=== PATIENT | female | born 1950 | race Caucasian/White ===

== ENCOUNTER 2020-02-23 12:41 | Observation (INO) | payer MEDICARE, OTHER, SELFPAY ==
[2020-02-23] VITALS (8 sets, daily range): BP systolic 133–147; BP diastolic 48–101; PULSE 62–79; RESP 12–19; TEMP 36.5–36.8; O2SAT 96–100; BMI 29.4; BMI 28.1; BMI 28.2
--- NOTE | 2020-02-23 13:04 | ED.RN ---
PT ARRIVES ALERT AND ORIENTED WITH FINGERSTICK BS 26. PT GIVEN ORANGE JUICE AND CHEESE STICK IMMEDIATELY. FSBS RETESTED WITH RESULT OF 36. AFTER PHYSICIAN EXAMINATION, PT GIVEN SECOND ORANGE JUICE AND HAM AND CHEESE SANDWICH. WILL CONTINUE TO MONITOR.
[2020-02-23 13:27] LABS: Absolute Lymphocyte Count 1.22 X10^3/uL (0.83-4.51); Absolute Neutrophil Count 10.4 X10^3/uL (2.0-7.7); Basophil# 0.02 X10^3/uL; Basophil% 0.2 % (0-1); Eosinophil# 0.18 X10^3/uL; Eosinophils% 1.4 % (0-5); Hematocrit 38.2 % (37-47); Hemoglobin 12.3 g/dL (12.0-15.0); Lymphocyte # 1.22 X10^3/ul (4.0); Lymphocyte % 9.7 % (19-41); Mean Corp Hgb Conc 32.2 g/dL (32-36); Mean Corpuscular Hgb 28.3 pg (27.0-32.0); Mean Platelet Vol. 8.8 fl (6.2-12.0); Monocyte# 0.77 X10^3/uL; Monocyte% 6.1 % (0-10); NRBC Flagged by Analyzer 0 % (0-5); Neutrophil # 10.36 X10^3/uL (2.7-7.7); Platelet Count 262 K/mm3 (150-450); RBC Distribution Width CV 18.5 % (11.6-14.6); Red Blood Count 4.34 M/mm3 (4.2-5.4); White Blood Count 12.6 K/mm3 (4.4-11.0)
[2020-02-23 13:37] LABS: Anion Gap 6 (5-15); BUN 25 mg/dL (7-18); Calcium,Total 9.4 mg/dL (8.5-10.1); Chloride 107 mmol/L (98-107); EST Glomerular Filtration Rate 89 mL/min (>60); Est Glom Filt Rate - Afr Amer 107 mL/min (>60); Glucose 129 mg/dL (74-106); Potassium 3.8 mmol/L (3.5-5.1); Sodium Level 139 mmol/L (136-145)
[2020-02-23 14:46] LABS: Bedside Glucose 180 mg/dL (70-110)
[2020-02-23 14:46] LABS: Bedside Glucose 36 mg/dL (70-110)
--- NOTE | 2020-02-23 15:12 | ED.VISSUMM ---
- ER Visit Summary Date of Service: 02/23/20 Chief Complaint: Hypoglycemia History of Present Illness: The patient is a [address] Sidhu. She is on Actos 15 mg once a day, glyburide 5 mg every morning and 5 mg every afternoon, and metformin 1000 mg twice daily. Patient reports that she ate Cheerios for breakfast. She had not eaten lunch yet. She states that she was sitting at the table with her and son and could hear them talking to her, but she was unable to respond. Upon EMS arrival her blood sugar was 23. She was given a dose of glucagon on the way in and is now back to normal. She denies any recent change in her medications. Review of systems: General: No fever, chills, cold sweats. Cardiovascular: No chest pain, palpitations. Respiratory: No cough, shortness of breath, dyspnea on exertion. Gastrointestinal: No abdominal pain, nausea, vomiting, diarrhea, melena, or hematochezia. Genitourinary: No dysuria, frequency, hematuria. Skin: No rash. Neuro: No headache, numbness, weakness. Physical Examination: Vitals: Stable. Afebrile. General: Well-nourished and well-developed. Head: Normocephalic atraumatic. Neck: Supple, no lymphadenopathy. No JVD. Nontender. Cardiovascular: Regular rate and rhythm. No murmurs. Respiratory: No respiratory distress. Clear to auscultation bilaterally. Abdominal: Soft, nontender, nondistended, normal bowel sounds. No guarding, rebound, or peritoneal signs. Back: Nontender. Extremities: Nontender, no edema. Skin: Normal color, no rash. Neurologic: Alert and oriented ?3. Cranial nerves II through XII are intact. Normal strength and sensation. Psych: Normal affect. Test Results: CBC shows a white count of 12.6 with 87 neutrophils and 10 lymphocytes. Chem-7 shows a glucose 139 BUN 25. Emergency Department Course and Treatment: Patient was awake and alert on arrival to the emergency department. She was not given dextrose IV as she was able to eat. She is resting comfortably. Treatment Plan: Patient was discussed with Dr. Reeves. She will be admitted the hospital for further evaluation and treatment. Disposition: Admitted in improved condition. Impression: 1. Hypoglycemia on sulfonylurea agent. This note was generated with Dragon dictation software. It may contain incorrect words, spelling, and punctuation that were not noted in review of the chart prior to signing ED Disposition - Plan for ED Patient: Referrals: Roberto Tapia MD [Primary Care Provider] -
--- NOTE | 2020-02-23 15:18 | HP.PCM_ITS ---
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 Patient remembers waking up in the morning and having a bowl of cereal. She was sitting at the dining table with her , son and grandchildren. She was trying to figure out with them what to have for lunch. She remembers her saying that her eyes look glossy. The next thing that she remembers was waking up in the ambulance. Her blood glucose taken by the EMS squad was 33. She received IM glucagon and her right shoulder. Repeat blood sugar taken in route was 45. She denies feeling well recently. Denied any fever chills or shortness of breath. There has been no previous history of hypoglycemia. Vitals in the ED showed patient 98F, heart rate 72, blood pressure 138/101, respiration rate was 12, SPO2 is 98% on room air. WBC 12.6, hemoglobin 12.3, platelet count 262, BMP was unremarkable Past Medical History Past Medical History (Chronic Problems): Chronic Problems Diabetes mellitus (Chronic) Hypertension (Chronic) Allergies No Known Allergies Allergy (Verified 02/23/20 13:12) Home Medications: Ambulatory Orders Medication Instructions Recorded Glyburide 5 mg PO QHS 02/23/20 Glyburide 10 mg PO DAILY 02/23/20 Lisinopril [Zestril] 10 mg PO DAILY 02/23/20 Metformin HCl 1,000 mg PO BID 02/23/20 Pioglitazone [Actos] 15 mg PO DAILY 02/23/20 Simvastatin [Zocor] 40 mg PO DAILY 02/23/20 Surgical History: hysterectomy Psychiatric History: No pertinent psych hx 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 Dyspnea Respiratory: Denies: Cough, Shortness of breath at rest, Shortness of breath upon exertion, Sputum production Gastrointestinal: Denies: Abdominal Pain, Constipation, Nausea, Vomiting Genitourinary: Denies: Dysuria Musculoskeletal: Denies: Joint Pain, Joint stiffness, Joint swelling, Joint Tenderness Skin: Denies: Rash, Wounds Neurological: Denies: Numbness, Tingling, Focal weakness Psychiatric: Denies: Anxiety, Depression, Homicidal Ideations, Suicidal Ideations Hematologic/ Lymphatic: Denies: Easy Bruising, Easy Bleeding VTE Information - Inpt Only VTE Present on Admission: No VTE Pharm Prophylaxis ordered?: Yes Patient Problems: Active and Suspected Problems Hypoglycemia (Acute) - Physical Exam Vitals/I&O's: Vital Signs Temp Pulse Resp BP Pulse Ox 98 F 75 15 138/67 H 99 02/23/20 12:43 02/23/20 14:46 02/23/20 14:46 02/23/20 14:46 02/23/20 14:46 Oxygen Delivery Method Room Air Weight: 82.6 kg Body Mass Index (BMI) 29.4 Finger Stick Blood Glucose 180 General: Alert, Oriented x3, Cooperative, No apparent distress HEENT: Atraumatic, PERRLA, EOMI, Normocephalic Oral: Moist Mucosa Neck: Supple Lungs: Clear to auscultation, Normal air movement Cardiovascular: Regular rate, Regular Rhythm, Normal S1, Normal S2, No murmurs Abdomen: Bowel Sounds Present, Soft, Non Tender, Non-Distended, No Hepato- splenomegaly Extremities: No edema Skin: No rashes, No breakdown Musculoskeletal: No Tenderness to Palpation of Joints or Extremities Lymphatic: No Cervical, Supraclavicular, or Inguinal Adenopathy Neurological: Cranial nerves II-XII grossly intact, Neuro grossly intact Psych/Mental Status: Normal Affect, Appropriate Laboratory Results 02/23/20 13:01: POC Glucose 36 L* 02/23/20 13:15: WBC 12.6 H, RBC 4.34, Hgb 12.3, Hct 38.2, MCV 88.0, MCH 28.3, MCHC 32.2, RDW Std Deviation 55.0 H, RDW Coeff of Brian 18.5 H, Plt Count 262, MPV 8.8, Immature Gran % (Auto) 0.600, Neut % (Auto) 82.0 H, Lymph % (Auto) 9.7 L, [place] % (Auto) 6.1, Eos % (Auto) 1.4, Baso % (Auto) 0.2, Absolute Neuts (auto) 10.4 H, Absolute Lymphs (auto) 1.22, Nucleated RBC % 0 02/23/20 13:15: Sodium 139, Potassium 3.8, Chloride 107, Carbon Dioxide 26.0, Anion Gap 6, BUN 25 H, Creatinine 0.70, Estim Creat Clear Calc 49.00, Est GFR (MDRD) Af Amer 107, Est GFR (MDRD) Non-Af 89, BUN/Creatinine Ratio 36.0 H, Glucose 129 H, Calcium 9.4 02/23/20 14:36: POC Glucose 180 H Assessment/Plan All Active Problems Hypoglycemia (Acute) 69 year old F with PMHx of Type 2 DM, hypertension who comes in with hypoglycemia. 1. Hypoglycemia, in a patient with known history of type II DM on oral hypoglycemics Oral hypoglycemics held; blood glucose is currently 180 We will continue to monitor blood glucose and add low-dose insulin sliding scale if needed 2. Leucocytosis, reactive, no signs of infection 3. Hypertension, controlled, continue on Lisinopril 4. DVT PPx- Lovenox SC OBSV E&M: [id number] Initial observation care L3
[2020-02-23 18:15] LABS: Bedside Glucose 93 mg/dL (70-110)
[2020-02-23 18:15] LABS: Bedside Glucose 57 mg/dL (70-110)
[2020-02-23 18:15] LABS: Bedside Glucose 26 mg/dL (70-110)
[2020-02-23 18:27] LABS: AST(SGOT) 21 U/L (15-37); Alanine Aminotransfer ALT/SGPT 29 U/L (13-56); Albumin, Serum 3.5 g/dL (3.2-5.0); Alkaline Phosphatase 62 U/L (45-117); Bilirubin, Direct 0.11 mg/dL (0.00-0.30); Globulin 4.2 g/dL (2.2-4.2); Protein, Total 7.7 g/dL (6.4-8.2)
[2020-02-23 18:39] LABS: Hemoglobin A1c 7.1 % (4.2-6.3)
[2020-02-23 21:55] LABS: Bedside Glucose 108 mg/dL (70-110)
[2020-02-24 03:00] VITALS: PULSE 62
[2020-02-24 03:20] VITALS: BP 122/65; PULSE 62; RESP 16; TEMP 36.7; O2SAT 95
[2020-02-24 03:31] LABS: Bedside Glucose 61 mg/dL (70-110)
[2020-02-24] MEDS: Acetaminophen 325 MG Tablet 650 MG PO (03:31)
[2020-02-24 04:06] LABS: Bedside Glucose 113 mg/dL (70-110)
[2020-02-24 06:38] LABS: Absolute Lymphocyte Count 1.65 X10^3/uL (0.83-4.51); Absolute Neutrophil Count 4.7 X10^3/uL (2.0-7.7); Basophil# 0.03 X10^3/uL; Basophil% 0.4 % (0-1); Eosinophil# 0.23 X10^3/uL; Eosinophils% 3.2 % (0-5); Hemoglobin 10.6 g/dL (12.0-15.0); Lymphocyte # 1.65 X10^3/ul (4.0); Mean Corp Hgb Conc 31.2 g/dL (32-36); Mean Corpuscular Hgb 26.7 pg (27.0-32.0); Mean Corpuscular Volume 85.6 fL (81-99); Mean Platelet Vol. 8.9 fl (6.2-12.0); Monocyte# 0.52 X10^3/uL; Monocyte% 7.3 % (0-10); NRBC Flagged by Analyzer 0 % (0-5); Neutrophil # 4.72 X10^3/uL (2.7-7.7); Neutrophil % 65.8 % (47-70); Platelet Count 256 K/mm3 (150-450); RBC Distribution Width CV 17.4 % (11.6-14.6); RBC Distribution Width SD 54.7 fl (35.1-43.9); Red Blood Count 3.97 M/mm3 (4.2-5.4); White Blood Count 7.2 K/mm3 (4.4-11.0)
[2020-02-24 06:51] LABS: Bedside Glucose 132 mg/dL (70-110)
[2020-02-24 07:00] VITALS: PULSE 56
[2020-02-24 07:06] LABS: ALB/GLOB Ratio 0.8 RATIO (0.9-2.4); AST(SGOT) 21 U/L (15-37); Alanine Aminotransfer ALT/SGPT 25 U/L (13-56); Albumin, Serum 2.9 g/dL (3.2-5.0); Alkaline Phosphatase 49 U/L (45-117); Anion Gap 7 (5-15); BUN 23 mg/dL (7-18); BUN/Creat Ratio 30.3 RATIO (10-20); Calcium,Total 8.4 mg/dL (8.5-10.1); Chloride 107 mmol/L (98-107); Creatinine, Serum 0.76 mg/dL (0.55-1.02); EST Glomerular Filtration Rate 80 mL/min (>60); Est Glom Filt Rate - Afr Amer 97 mL/min (>60); Globulin 3.5 g/dL (2.2-4.2); Glucose 162 mg/dL (74-106); Potassium 4.3 mmol/L (3.5-5.1); Protein, Total 6.4 g/dL (6.4-8.2); Sodium Level 139 mmol/L (136-145)
--- NOTE | 2020-02-24 08:56 | DCINST_ITS ---
- Discharge Diagnoses Current Active Problems: Current Active and Chronic Problems Hypoglycemia (Acute) Diabetes mellitus (Chronic) Hypertension (Chronic) Reason(s) for Visit for Discharge Instructions: Hypoglycemia You will use the following diet at home:: Calorie/Carbohydrate Controlled (spe cify 1200, 1400, etc) - 1800 calories, Cardiac Your food should be the consistency of: Regular Your liquids should be the consistency of: Regular/Thin Discharge Activity: Return to Normal Activity Additional Instructions: Take note of changes in your medications. Check your blood glucose 3x a day for 1 week. Follow-up with your primary care doctor for slow re-introduction of your other diabetic medications. Be aware of low blood sugar and its symptoms. If you notice that your blood sugar is going more than 200 prior to seeing your doctor, call and ask for resumption of some of your other medications that have been held. Allergies/Adverse Reactions: Allergies No Known Allergies Allergy (Verified 02/23/20 13:12) Medications to take at Discharge Lisinopril [Zestril] 10 mg PO DAILY 02/23/20 Metformin HCl 1,000 mg PO BID 02/23/20 Simvastatin [Zocor] 40 mg PO DAILY 02/23/20 Primary Care Physician: Roberto Tapia MD [Primary Care Provider] - Please follow up with your Primary Care Physician in: in 1-2 weeks Test Results: Test results from this visit will be discussed in further detail at your follow- up appointment, if applicable. Proposed Discharge Date: 02/24/20
--- NOTE | 2020-02-24 09:11 | DS.PCM_ITS ---
Discharge Date and Diagnosis Date of Admission: 02/23/20 Date of Discharge: 02/24/20 - Primary Discharge Diagnosis Active and Suspected Problems Hypoglycemia (Acute) - Secondary Discharge Diagnosis Chronic Problems Diabetes mellitus (Chronic) Hypertension (Chronic) Hospital Course and Treatment None Operations: None Procedures: None Summary of Care Provided: 69 year old F with PMHx of Type 2 DM, hypertension who comes in with hypoglycemia. Patient remembers waking up in the morning and having a bowl of cereal. She was sitting at the dining table with her , son and grandchildren talking to them they noticed that her eyes were glossy she became confused. The EMS was called. Glucose was 33. She received IM glucago n. Repeat blood sugar was 45. Patient came around in the ambulance. She is on metformin, Actos and hyper right. These medications were held. Patient was alert oriented time of admission. She was able to take her meals. More hypoglycemias were noticed overnight. She was resumed on metformin at discharge and asked to keep her profile of her blood sugars. Follow-up with her primary care doctor in 1 week with a log of her blood sugars. She knows to call her primary care doctor when her sugars are more than 180?200. Subjective: On the day of discharge, patient was seen and examined. Denied any new complaints. Objective: Physical exam: General: Alert, Oriented x3, Cooperative, No apparent distress HEENT: Atraumatic, PERRLA, EOMI, Normocephalic Oral: Moist Mucosa Neck: Supple Lungs: Clear to auscultation, Normal air movement Cardiovascular: Regular rate, Regular Rhythm, Normal S1, Normal S2, No murmurs Abdomen: Bowel Sounds Present, Soft, Non Tender, Non-Distended, No Hepato- splenomegaly Extremities: No edema Skin: No rashes, No breakdown Musculoskeletal: No Tenderness to Palpation of Joints or Extremities Lymphatic: No Cervical, Supraclavicular, or Inguinal Adenopathy Neurological: Cranial nerves II-XII grossly intact, Neuro grossly intact Psych/Mental Status: Normal Affect, Appropriate - Physical Exam Vitals/I&O's: Vital Signs Temp Pulse Resp BP Pulse Ox 98.0 F 62 16 122/65 H 95 02/24/20 03:20 02/24/20 03:20 02/24/20 03:20 02/24/20 03:20 02/24/20 03:20 Oxygen Delivery Method Room Air Weight: 80.1 kg Body Mass Index (BMI) 28.1 Finger Stick Blood Glucose 180 Intake and Output for Last 24 Hours 02/22/20 02/23/20 02/24/20 23:59 23:59 23:59 Intake Total 340 / 340 200 / 200 Balance 340 / 340 200 / 200 Laboratory Results 02/23/20 12:40: POC Glucose 26 L* 02/23/20 13:01: POC Glucose 36 L* 02/23/20 13:15: WBC 12.6 H, RBC 4.34, Hgb 12.3, Hct 38.2, MCV 88.0, MCH 28.3, MCHC 32.2, RDW Std Deviation 55.0 H, RDW Coeff of Brian 18.5 H, Plt Count 262, MPV 8.8, Immature Gran % (Auto) 0.600, Neut % (Auto) 82.0 H, Lymph % (Auto) 9.7 L, [place] % (Auto) 6.1, Eos % (Auto) 1.4, Baso % (Auto) 0.2, Absolute Neuts (auto) 10.4 H, Absolute Lymphs (auto) 1.22, Nucleated RBC % 0 02/23/20 13:15: Sodium 139, Potassium 3.8, Chloride 107, Carbon Dioxide 26.0, Anion Gap 6, BUN 25 H, Creatinine 0.70, Estim Creat Clear Calc 49.00, Est GFR (MDRD) Af Amer 107, Est GFR (MDRD) Non-Af 89, BUN/Creatinine Ratio 36.0 H, Glucose 129 H, Calcium 9.4 02/23/20 13:15: Hemoglobin A1c 7.1 H 02/23/20 13:15: Total Bilirubin 0.30, Direct Bilirubin 0.11, AST 21, ALT 29, Alkaline Phosphatase 62, Total Protein 7.7, Albumin 3.5, Globulin 4.2 02/23/20 14:36: POC Glucose 180 H 02/23/20 17:39: POC Glucose 57 L 02/23/20 18:03: POC Glucose 93 02/23/20 21:24: POC Glucose 108 02/24/20 03:24: POC Glucose 61 L 02/24/20 04:00: POC Glucose 113 H 02/24/20 06:05: WBC 7.2, RBC 3.97 L, Hgb 10.6 L, Hct 34.0 L, MCV 85.6, MCH 26.7 L, MCHC 31.2 L, RDW Std Deviation 54.7 H, RDW Coeff of Brian 17.4 H, Plt Count 256, MPV 8.9, Immature Gran % (Auto) 0.300, Neut % (Auto) 65.8, Lymph % (Auto) 23.0, [place] % (Auto) 7.3, Eos % (Auto) 3.2, Baso % (Auto) 0.4, Absolute Neuts (auto) 4.7, Absolute Lymphs (auto) 1.65, Nucleated RBC % 0 02/24/20 06:05: Sodium 139, Potassium 4.3, Chloride 107, Carbon Dioxide 25.0, Anion Gap 7, BUN 23 H, Creatinine 0.76, Estim Creat Clear Calc 49.00, Est GFR (MDRD) Af Amer 97, Est GFR (MDRD) Non-Af 80, BUN/Creatinine Ratio 30.3 H, Glucose 162 H, Calcium 8.4 L, Total Bilirubin 0.40, AST 21, ALT 25, Alkaline Phosphatase 49, Total Protein 6.4, Albumin 2.9 L, Globulin 3.5, Albumin/Globulin Ratio 0.8 L 02/24/20 06:38: POC Glucose 132 H Current Medications Acetaminophen (Tylenol) 650 mg PO Q6H PRN PRN PRN Reason: Pain Score 1-10/Temp > 100.7 F Last Admin: 02/24/20 03:31 Dose: 650 mg Documented by: Atorvastatin Calcium (Lipitor) 20 mg PO DAILY [facility] Dextrose (D50w Syringe) 0 gm IV X1 PRN; Protocol PRN Reason: Hypoglycemia Enoxaparin Sodium (Lovenox) 40 mg SC DAILY [facility] Glucagon () 1 mg IM .X1 PRN PRN Reason: Hypoglycemia Sodium Chloride () 250 mls @ 15 mls/hr IV .[id number] PRN PRN Reason: Saline Flush Sodium Chloride () 250 mls @ 15 mls/hr IV .[id number] PRN PRN Reason: Additional IVPB Infusion Insulin Human Lispro (Humalog Kwikpen (Bkc)) 0 unit SC ACHS [facility]; Protocol Last Admin: 02/24/20 06:52 Dose: Not Given Documented by: Lisinopril (Zestril) 10 mg PO DAILY [facility] Metformin HCl (Glucophage) 1,000 mg PO BIDCM [facility] Nitroglycerin (Nitrostat) 0.4 mg SUBLINGUAL Q5M PRN PRN Reason: CARDIAC/CHEST PAIN Ondansetron HCl (Zofran) 4 mg IV Q8H PRN PRN PRN Reason: NAUSEA/VOMITING Sodium Chloride () 10 - 40 ml IV UD PRN PRN Reason: SALINE FLUSH Discharge Diet: Low fat/ Low Cholesterol, 2000 mg Sodium Diet, Carb Control Diet Discharge Activity: Return to Normal Activity Home Medications: Medications to take at Discharge Lisinopril [Zestril] 10 mg PO DAILY 02/23/20 Metformin HCl 1,000 mg PO BID 02/23/20 Simvastatin [Zocor] 40 mg PO DAILY 02/23/20 Primary Care Physician: Roberto Tapia MD [Primary Care Provider] - Please follow up with your Primary Care Physician in: in 1-2 weeks Disposition: Home Minutes spent on discharge:: 35 Patient Condition:: Stable Medical Necessity - Tobacco Use Smoking Status: Never smoker Tobacco Use: Non-smoker Meaningful Use Info Meaningful Use Diagnoses (Choose all that apply): None applicable OBSV E&M: 14721 Observation care discharge
[2020-02-24 09:15] VITALS: BP 130/58; PULSE 61; RESP 16; TEMP 36.7; O2SAT 99
[2020-02-24 09:31] LABS: Bedside Glucose 112 mg/dL (70-110)
[2020-02-24] MEDS: Lisinopril 10 MG Tablet PO (10:24)
[2020-02-24] MEDS: Enoxaparin 40 MG/0.4 ML Syringe SC (10:24)
[2020-02-24] MEDS: Atorvastatin Calcium 20 MG Tablet PO (10:24)
[2020-02-24] MEDS: metFORMIN HCl 1,000 MG Tablet 1000 MG PO (10:58)
[2020-02-24 16:31] LABS: Bedside Glucose 252 mg/dL (70-110)
== END 2020-02-24 08:55 | disposition home or self-care (01) ==
LOC: ED 15:29 → PCU 15:37
PROVIDERS: Admitting Provider Internal Medicine; Emergency Provider Emergency Medicine; PCP Family Medicine; Visit Provider Internal Medicine
DX: E11.649 Type 2 diabetes mellitus with hypoglycemia without coma (principal); I10 Essential (primary) hypertension; Z79.899 Other long term (current) drug therapy; Z79.84 Long term (current) use of oral hypoglycemic drugs; D72.829 Elevated white blood cell count, unspecified
CPT/HCPCS: 36415; 80048; 80053; 80076; 82962; 83036; 85025; 96372; 99218; 99285; A4216; G0378